=== PATIENT | male | born 1945 | race Native Hawaiian/Other Pacific Islander ===

== ENCOUNTER 2020-09-04 10:21 | Outpatient (CLI) | payer OTHER | END 2020-09-04 22:16 | disposition home or self-care (01) | LOC: RAD 10:21 | DX: J44.1 Chronic obstructive pulmonary disease with (acute) exacerbation (principal) ==

== ENCOUNTER 2021-01-22 15:57 | Outpatient (CLI) | payer OTHER | END 2021-01-22 21:55 | disposition home or self-care (01) | LOC: RAD 15:57 | PROVIDERS: ATTEND Internal Medicine Sleep Medicine | DX: R06.02 Shortness of breath (principal) ==

== ENCOUNTER 2021-02-17 10:08 | Outpatient (CLI) | payer OTHER | END 2021-02-17 20:16 | disposition home or self-care (01) | LOC: CT 10:08 | PROVIDERS: ATTEND Internal Medicine Sleep Medicine | DX: Z87.891 Personal history of nicotine dependence (principal); J44.9 Chronic obstructive pulmonary disease, unspecified | CPT/HCPCS: G0297-TC ==

== ENCOUNTER 2022-03-18 08:21 | Outpatient (CLI) | payer OTHER ==
[~2022-03-18] VITALS: Ht 182.9 cm; Wt 115.7 kg
== END 2022-03-18 21:56 | disposition home or self-care (01) ==
LOC: NM 08:21
PROVIDERS: ATTEND Physician Assistant
DX: R09.89 Other specified symptoms and signs involving the circulatory and respiratory systems (principal); R07.89 Other chest pain; I25.10 Atherosclerotic heart disease of native coronary artery without angina pectoris
CPT/HCPCS: A9500; J2785

== ENCOUNTER 2022-03-19 10:30 | Outpatient (CLI) | payer OTHER | END 2022-03-19 18:55 | disposition home or self-care (01) | LOC: US 10:30 | PROVIDERS: ATTEND Physician Assistant | DX: R09.89 Other specified symptoms and signs involving the circulatory and respiratory systems (principal); R07.89 Other chest pain; I25.10 Atherosclerotic heart disease of native coronary artery without angina pectoris ==

== ENCOUNTER 2022-05-12 18:00 | Emergency (ER) | payer OTHER ==
[~2022-05-12] VITALS: Ht 182.9 cm; Wt 110.7 kg
[2022-05-12 19:09] LABS: PLATELET COUNT 226 K/uL (142-355)
[2022-05-12 19:12] LABS: POTASSIUM 3.9 mmol/L (3.6-5.2); SODIUM 139 mmol/L (136-145)
[2022-05-12 20:10] VITALS: BP 114/72; TEMP 97.1
== END 2022-05-12 20:10 | disposition home or self-care (01) ==
LOC: ED 18:00
PROVIDERS: Emergency Medicine Emergency Medical Services
DX: F31.89 Other bipolar disorder (principal); Z79.899 Other long term (current) drug therapy
CPT/HCPCS: 36415; 80048; 80164; 80307; 83735; 85027; 99283